=== PATIENT | female | born 1960 | race Caucasian/White ===

== ENCOUNTER 2017-11-22 08:16 | Emergency (ER) | payer OTHER ==
[2017-11-22 08:22] VITALS: BP 148/91
--- NOTE | 2017-11-22 08:27 | EDPHY ---
H & P Stated Complaint: slipped hiking yesterday/l wrist pain Time Seen by Provider: 11/22/17 08:26 HPI/ROS: CHIEF COMPLAINT: Left wrist pain, arm abrasions HISTORY OF PRESENT ILLNESS: The patient presents the ED for evaluation of left wrist pain and arm abrasions after mechanical fall while hiking yesterday. The patient did not strike her head or lose consciousness. She has no additional complaints of extremity pain. She thought that she simply sustained a sprain to her wrist but wanted to get it checked out. REVIEW OF SYSTEMS: Neuro: no headache, numbness, weakness Musculoskeletal: as above Skin: As above Source: Patient Exam Limitations: No limitations - Personal History Current Tetanus Diphtheria and Acellular Pertussis (TDAP): Yes - Medical/Surgical History Hx Asthma: No Hx Chronic Respiratory Disease: No Hx Diabetes: No Hx Cardiac Disease: No Hx Renal Disease: No Hx Cirrhosis: No Hx Alcoholism: No Hx HIV/AIDS: No Hx Splenectomy or Spleen Trauma: No Other PMH: denies - Social History Smoking Status: Never smoked - Physical Exam Exam: General Appearance: Alert, no distress Head: Atraumatic Neck: Nontender, trachea midline Respiratory: No chest wall tender, no subcutaneous air, lungs clear bilaterally Cardiovascular: Regular rate and rhythm Abdomen: Abdomen is soft and nontender, pelvis stable Skin: Superficial abrasions to the left wrist and elbow Back: No midline T/L/S pain Extremities: Tenderness to palpation left wrist Neurological: A&Ox3, normal motor function, normal sensory exam Constitutional: Initial Vital Signs Temperature (C) 36.9 C 11/22/17 08:19 Heart Rate 83 11/22/17 08:19 Respiratory Rate 17 11/22/17 08:19 Blood Pressure 148/91 H 11/22/17 08:19 O2 Sat (%) 96 11/22/17 08:19 O2 Delivery Mode Room Air Allergies/Adverse Reactions: No Known Allergies Allergy (Unverified 11/22/17 08:19) Home Medications: Medication Instructions Recorded NK [No Known Home Meds] 11/22/17 Medical Decision Making - Diagnostics Imaging Results: Imaging Impressions Wrist X-Ray 11/22/17 08:26 Impression: Triquetral avulsion fracture. ED Course/Re-evaluation: The patient has a fractured triquetrum. She has been placed in a Velcro wrist splint. The patient is visiting from out of town will follow up with a orthopedic surgeon when she returns to [place] next week. She has been given a copy of her x-rays. Differential Diagnosis: Differential diagnosis considered includes fracture, sprain, dislocation Departure - Departure Disposition: Home, Routine, Self-Care Clinical Impression: Triquetral fracture Qualifiers: Encounter type: initial encounter Fracture type: closed Fracture alignment: nondisplaced Laterality: left Qualified Code(s): S62.115A - Nondisplaced fracture of triquetrum [cuneiform] bone, left wrist, initial encounter for closed fracture Condition: Good Instructions: Wrist Fracture in Adults (ED) Additional Instructions: 1. Please wear wrist splint until seen in follow-up by Orthopedic surgery. 2. Please follow-up with your orthopedic surgeon in [place] further evaluation of your triquetrum fracture.
== END 2017-11-22 09:10 | disposition home or self-care (01) ==
DX: S62.115A Nondisplaced fracture of triquetrum [cuneiform] bone, left wrist, initial encounter for closed fracture (principal); W01.0XXA Fall on same level from slipping, tripping and stumbling without subsequent striking against object, initial encounter; Y93.01 Activity, walking, marching and hiking
CPT/HCPCS: L3984